=== PATIENT | female | born 1985 | race Caucasian/White ===

== ENCOUNTER 2022-08-10 12:10 | Emergency (ER) | payer MEDICAID ==
[~2022-08-10] VITALS: Ht 170.2 cm; Wt 68.0 kg
[2022-08-10 12:12] VITALS: BP 121/69
[2022-08-10] MEDS ORDERED: BENZTROPINE 0.5MG TAB ONE (13:59)
[2022-08-10] MEDS ORDERED: DiphenhydrAMINE HCL 50 MG/ML VIAL ONE (13:59)
[2022-08-10] MEDS ORDERED: DIPHENHYDRAMINE HCL 25 MG CAPSULE PO ONE (14:00)
[2022-08-10] MEDS ORDERED: ACETAMINOPHEN 500 MG TABLET PO ONE (15:00)
[2022-08-10] MEDS ORDERED: BENZ1TAB10 PO (15:07)
[2022-08-10] MEDS ORDERED: BENZTROPINE 0.5MG TAB PO SCH (21:00)
== END 2022-08-10 15:28 | disposition home or self-care (01) ==
LOC: EDH 12:10
DX: G25.9 Extrapyramidal and movement disorder, unspecified (principal)
CPT/HCPCS: 99284; J1200